=== PATIENT | female | born 1995 | race Caucasian/White ===

== ENCOUNTER 2021-06-18 09:30 | Emergency (ER) | payer OTHER, SELFPAY ==
--- NOTE | 2021-06-18 09:33 | ED.URI ---
HPI - URI/Sore Throat General Chief Complaint: Upper Respiratory Infection Stated Complaint: Ear Pain/Cough Time Seen by Provider: 06/18/21 09:33 Source: patient and RN notes reviewed History of Present Illness HPI Narrative: Patient is a 25-year-old female who presents the urgent care with complaints of left ear pain for the last 2 days and a cough for a week. Patient has been using cough drops and taking Tylenol without much relief. Patient denies of any fever, nausea, vomiting or sore throat. States that she has had some minor nasal congestion but does have a history of allergies. Patient denies of any known exposures to anyone that has been ill. Denies of any shortness of breath. No other acute complaints. No acute distress noted. Patient aware of the plan of care. Some parts of this dictation were generated by voice recognition software and may contain typographical and/or grammatical inaccuracies. Related Data Home Medications Medication Instructions Recorded Confirmed cariprazine [Vraylar] 1.5 mg PO DAILY 06/18/21 06/18/21 gabapentin 300 mg PO DAILY 06/18/21 06/18/21 lithium carbonate 1,350 mg PO HS 06/18/21 06/18/21 prazosin 5 mg PO HS 06/18/21 06/18/21 Allergies Allergy/AdvReac Type Severity Reaction Status Date / Time benzonatate Allergy Intermediate TREMORS, Verified 06/18/21 09:44 VOMITING, DIZZINESS hydrocodone Allergy Intermediate Rash Verified 06/18/21 09:44 codeine AdvReac Unknown Nausea and Verified 06/18/21 09:44 Vomiting Review of Systems Review of Systems: CONSTITUTIONAL: Denies fever, chills, or sweats. EYES: Denies visual changes, redness, or discharge. ENT: Reports of left otalgia with nasal congestion CARDIOVASCULAR: Denies chest pain, palpitations, or edema. RESPIRATORY: Reports of nonproductive cough without dyspnea GASTROINTESTINAL: Denies abdominal pain, nausea, vomiting, or diarrhea. GENITOURINARY: Denies dysuria or hematuria. SKIN: Denies rash or itching. MUSCULOSKELETAL: Denies back pain, joint pain, or myalgia. NEUROLOGIC: Denies headache, numbness, or weakness. PSYCHIATRIC: History of anxiety and depression All other systems reviewed are negative, except as documented in HPI. PMFSH Comments At the time of my signature, I reviewed and agree with the nursing past medical, surgical, social, and family history. There is no relevant family history pertinent to the patient complaint. Exam Narrative: GENERAL: This is a well-nourished, well-developed patient, in no apparent distress. HEAD: normocephalic, atraumatic. EYES: PERRL. Sclera clear/white. Vision is grossly intact. EARS: External ears normal, notable abrasions with dried blood to the right auditory canal. Left auditory canals clear and without drainage, eustachian tube dysfunction with mild direct fluid to left. Bilateral TMs normal without perforation. Hearing grossly intact. NOSE: External nose normal with no obvious nasal discharge, nares without redness, no rhinorrhea. THROAT: Mucous membranes moist, posterior pharynx clear. Moderate postnasal drainage NECK: Neck supple CARDIOVASCULAR: Regular rate and rhythm without murmurs, gallops, or rubs. RESPIRATORY: Clear to auscultation. Breath sounds equal bilaterally. No wheezes, rales, or rhonchi. SKIN: warm, intact with no suspicious lesions or rash, good texture and turgor. NEURO: awake, alert, and oriented to person, place and time. There were no obvious focal neurologic abnormalities. EXTREMITIES: No clubbing, cyanosis, or edema. Course Course Level of Care: Express Care Visit Vital Signs Vital signs: Vital Signs Temperature 98.6 F 06/18/21 09:41 Pulse Rate 83 06/18/21 09:41 Respiratory Rate 20 06/18/21 09:41 Blood Pressure 127/64 06/18/21 09:41 Pulse Oximetry 98 06/18/21 09:41 Temperature 98.6 F 06/18/21 09:41 Pulse Rate 83 06/18/21 09:41 Respiratory Rate 20 06/18/21 09:41 Blood Pressure 127/64 06/18/21 09:41 Pulse O
[2021-06-18 09:41] VITALS: BP 127/64; PULSE 83; RESP 20; TEMP 37; O2SAT 98
== END 2021-06-18 10:03 | disposition home or self-care (01) ==
PROVIDERS: Emergency Provider Nurse Practitioner Family
DX: H92.02 Otalgia, left ear (principal); J98.01 Acute bronchospasm
CPT/HCPCS: 99213; G0463